=== PATIENT | female | born 1945 | race Asian ===

== ENCOUNTER → 2017-08-31 | Outpatient (REF) | payer MEDICARE, OTHER ==
[2017-08-31 16:21] LABS: CHOLESTEROL LEVEL 292 MG/DL (<200); TRIGLYCERIDES LEVEL 321 MG/DL (<150)
[2017-09-01 11:27] LABS: HEPATITIS B SURFACE ANTIBODY NEGATIVE (POSITIVE)
== END ==
LOC: M LAB REF 15:28
PROVIDERS: ATTEND Internal Medicine Nephrology
DX: N18.6 End stage renal disease (principal); E78.2 Mixed hyperlipidemia

== ENCOUNTER → 2018-02-01 | Outpatient (CLI) | payer MEDICARE, OTHER | LOC: M RAD 09:14 | DX: N18.6 End stage renal disease (principal); F31.9 Bipolar disorder, unspecified; E83.52 Hypercalcemia | CPT/HCPCS: 78070 ==

== ENCOUNTER → 2018-11-10 | Outpatient (CLI) | payer MEDICARE, OTHER ==
[~2018-11-10] MED LIST: ISOVUE-300 61% 50ML VIAL (Q9967) As Ordered ONE; LIDOCAINE 2% MDV 20 ML VIAL As Ordered ONE; MIDAZOLAM INJ 2 MG/2 ML VIAL (J2250) As Ordered ONE; fentaNYL 100 MCG/2 ML INJECTION (J3010) As Ordered ONE
--- NOTE | 2018-11-10 16:49 | ROOPDOC ---
[facility] Report Of Operation Report of Operation DATE OF PROCEDURE: 11/10/18 PREPROCEDURE DIAGNOSES: End-stage renal disease on hemodialysis with poorly functioning left upper extremity AV fistula. POSTPROCEDURE DIAGNOSES: Same. PROCEDURE: 1. Ultrasound-guided access left upper extremity basilic vein 2. Left upper extremity fistulogram and central venogram 3. Angioplasty of the left basilic vein with an 8 x 40 and 10 x 80 [place] balloon 4. Completion venogram SURGEON: Colleen Garsia MD ANESTHESIA: Local anesthesia with 3 mL of lidocaine conscious sedation was supervised by Dr. Garsia, and the patient was monitored throughout the procedure by myself and was also independently monitored by a registered nurse assigned to the Department of radiology using automated blood pressure, EKG and pulse oximetry the detailed conscious record is permanently stored in the hospital information system. The following is the conscious sedation record: Versed 1 mg IV, fentanyl 75 g IV; start time 07:59, and time 08:30. The patient tolerated the sedation well. She was monitored appropriately postprocedure and d ischarged in stable condition. INDICATION FOR PROCEDURE: Ms. Mai is a very pleasant 73-year-old patient with end-stage renal disease, currently dialyzing with the left upper extremity brachial, basilic AV fistula. She has had increased pulsatility in the fistula and increased bleeding with procedures. We note this pulsatility is significant today on exam. Risks, benefits and alternatives to a fistulogram and potential intervention were explained at length to the patient. She is agreeable to proceed. Informed consent was obtained. The patient's was also present for the discussion and is also agreeable for us to proceed. PROCEDURE NOTE: The patient was brought to the angiographic suite in stable condition. Her left upper extremity was prepped and draped in a sterile fashion. A timeout was performed. Ultrasound was used to examine the fistula on the upper arm. The inflow through the AV anastomosis in the proximal aspect of the vein were all widely patent. We utilized ultrasound to access the vein near the AV anastomosis after anesthetizing with local anesthesia. A wire was passed through this access. Under fluoroscopic guidance. The micro-sheath was placed. Through this sheath Glidewire was advanced into the central system under fluoroscopic guidance, and the sheath was exchanged for a 6 [place] sheath. Sheath was flushed with saline. Sedation was administered through the sheath and the patient tolerated this well. We then injected a small amount of contrast through the sheath and several images were obtained. A 70% stenosis was noted in the distal basilic vein and a less significant 30% stenosis was noted just proximal to this in the axillary vein. We first selected an 8 x 40 [place] balloon and angioplasty the area of tight stenosis for three-minute inflations. The patient had significant discomfort and a small additional amount of fentanyl was given. She tolerated this well. We then deflated the balloon and venogram confirmed. There was no extravasation, but still some residual stenosis. We then exchanged her balloon for a 10 x 80 [place] balloon inflated this across the area of tight stenosis as well as mild stenosis more proximally. This was also inflated for a total of 3 minutes. After deflating the balloon, we saw significant improvement inflow through the fistula and less than 10% residual stenosis. There was an excellent thrill and all of the pulsatility had resolved. This concluded her procedure. The suture was placed at the access site sheath was removed. Pressure was held for 2 minutes for good hemostasis and dressings were applied. The patient was then taken to recovery in stable condition. ESTIMATED BLOOD LOSS: Approximately 2 mL. COMPLICATIONS:. None. REMARKS: It is okay to use the fistula for dialysis. COLLEEN GARSIA MD Nov 10, 2018 16:49
== END | disposition home or self-care (01) ==
LOC: M IRPRO 06:12
PROVIDERS: ATTEND Surgery Vascular Surgery
DX: T82.858A Stenosis of other vascular prosthetic devices, implants and grafts, initial encounter (principal); N18.6 End stage renal disease; Z99.2 Dependence on renal dialysis
CPT/HCPCS: 36902; 99152; 99153; C1725; C1769; C1894; J2250; J3010; Q9967

== ENCOUNTER 2021-03-27 12:34 | Emergency (ER) | payer MEDICARE, OTHER ==
[~2021-03-27] VITALS: Ht 165.1 cm; Wt 70.5 kg
[2021-03-27 12:35] VITALS: BP 177/77
--- NOTE | 2021-03-27 13:11 | REPVR ---
PROCEDURE INFORMATION: Exam: CT Head Without Contrast Exam date and time: 03/27/2021 12:47 PM Age: 75 years old Clinical indication: Injury or trauma; Fall; Blunt trauma (contusions or hematomas); Additional info: Fall injury TECHNIQUE: Imaging protocol: Computed tomography of the head without contrast. Radiation optimization: All CT scans at this facility use at least one of these dose optimization techniques: automated exposure control; mA and/or kV adjustment per patient size (includes targeted exams where dose is matched to clinical indication); or iterative reconstruction. COMPARISON: [facility] 02/01/2018 9:47 AM FINDINGS: Brain: There is no acute intracranial abnormality. Moderate small vessel ischemic changes are seen. There is no mass, midline shift, or mass effect. Torres-white matter differentiation is preserved. There is no evidence of hemorrhage. There is no extra-axial fluid collection. Basal cisterns are patent. Cerebral ventricles: Moderate prominence of ventricles and sulci representing volume loss. Paranasal sinuses: Near complete opacification of right maxillary sinus. Mastoid air cells: Visualized mastoid air cells are well aerated. Bones/joints: Unremarkable. No acute fracture. Soft tissues: Unremarkable. IMPRESSION: 1. Moderate volume loss and small vessel ischemic changes. 2. No acute intracranial abnormality. 3. Near complete opacification of right maxillary sinus. Electronically signed by: Clarissa Vaughn On 03/27/2021 13:11:17 PM
--- NOTE | 2021-03-27 13:13 | REPVR ---
PROCEDURE INFORMATION: Exam: CT Cervical Spine Without Contrast Exam date and time: 03/27/2021 12:47 PM Age: 75 years old Clinical indication: Injury or trauma; Fall; Blunt trauma; Additional info: Fall injury TECHNIQUE: Imaging protocol: Computed tomography images of the cervical spine without contrast. Radiation optimization: All CT scans at this facility use at least one of these dose optimization techniques: automated exposure control; mA and/or kV adjustment per patient size (includes targeted exams where dose is matched to clinical indication); or iterative reconstruction. COMPARISON: [facility] PARATHYROID IM[facility]ING 02/01/2018 9:47 AM FINDINGS: Bones/joints: No acute fracture. Normal alignment. Diffuse demineralization of the bones. Mild degenerative changes. Cystic lucency in C5 vertebral body measuring 4.5 mm the of uncertain etiology, clinical correlation is recommended. Discs/Spinal canal/Neural foramina: No significant disc protrusion. No severe spinal canal stenosis. No significant neural foraminal narrowing. Lungs: Lung apices are normal. Soft tissues: Unremarkable. IMPRESSION: No acute findings. Electronically signed by: Clarissa Vaughn On 03/27/2021 13:13:20 PM
--- NOTE | 2021-03-27 13:32 | REP ---
INDICATION: fall injury. COMPARISON: None. TECHNIQUE: Four views of the right wrist are obtained. FINDINGS: Four views of the right wrist demonstrate overall diffuse osteopenia. Joint spaces are preserved. No fracture is evident. There is subcortical cyst formation in the distal aspect of the navicula and minimal spurring is seen at the 1st carpal metacarpal articulation. There is a large bone density or bony overgrowth adjacent to or arising from the distal ulna. There is soft tissue swelling over this. The ulnar cortical margins appear intact no fracture is visualized. This associated bone density measuresr up to 1.5 cm in greatest diameter. This is of uncertain etiology. If this is a fracture I cannot resolve its donor site. Possibility of a osteo chondroma or old posttraumatic deformity is considered. IMPRESSION: There is a 1.5 cm bone density projecting adjacent to or arising from the distal ulna of uncertain significance. There is overlying soft tissue swelling. No definite fracture seen. Consider CT for further evaluation. Diffuse osteopenia. Otherwise negative. <Electronically signed by Dilan Chavis > 03/27/21 [id number]
--- NOTE | 2021-03-27 13:35 | REP ---
INDICATION: fall injury. COMPARISON: None. TECHNIQUE: Four views of the right elbow are provided. FINDINGS: Four views of the right elbow demonstrate medial and lateral epicondylar spurring. Joint spaces are preserved. No fracture is seen. There is Kathy olecranon soft tissue swelling and minimal olecranon process spurring is seen. There are 2 calcific densities in the soft tissues of proximal forearm, 1 medially and 1 laterally. These are of uncertain significance.. No fracture or subluxation is seen. . IMPRESSION: Medial and lateral epicondylar spurring. No fracture or subluxation seen. 2 calcific densities versus foreign bodies in the proximal forearm soft tissues. Question previous vascular access procedure related calcification.. <Electronically signed by Dilan Chavis > 03/27/21 [id number]
--- NOTE | 2021-03-27 13:36 | REP ---
INDICATION: fall injury. COMPARISON: None. TECHNIQUE: Three views of the right shoulder are provided. FINDINGS: The right glenohumeral and acromioclavicular joints are normally aligned. There is diffuse osteopenia. No fracture or subluxation is seen. Visualized right rib cage is intact. IMPRESSION: No fracture seen. No subluxation noted. <Electronically signed by Dilan Chavis > 03/27/21 [id number]
--- NOTE | 2021-03-27 16:03 | REP ---
INDICATION: per radiology, bony projection of ulna. COMPARISON: Comparison is made with today's radiographs. V/Q year bone density projecting over the distal humerus on radiographs.. TECHNIQUE: Helical scanning is acquired through the right forearm. 3 mm axial images re-formatted. Coronal and sagittal MPR images are generated. FINDINGS: There is a 12 by 16 by 5 mm benign osteochondroma arising from the distal ulna along its palm are and ulnar surface. This corresponds to the bone density superimposed on the distal ulna on radiographs. The medullary cavity is contiguous and the lesion is mushroom shaped on axial images. It is felt to be an incidental benign osteochondroma. No ulnar or radial fracture is seen. No carpal or proximal metacarpal fracture is appreciated. No diaphyseal forearm fracture or proximal forearm fracture is seen. There is moderate soft tissue swelling over the dorsal aspect of the distal ulna with a small focal soft tissue hematoma measuring 12 x 8 x 22 mm. IMPRESSION: 1. No evidence of forearm or carpal fracture. 2. 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 3. Soft tissue hematoma the dorsal aspect of the distal forearm adjacent to the distal ulna. <Electronically signed by Dilan Chavis > 03/27/21 [id number]
--- NOTE | 2021-03-28 14:45 | ED PDOC ---
Post-Departure Follow-Up radiology report faxed to Agnieszka Davey MD Mar 28, 2021 14:45
== END 2021-03-27 16:23 | disposition home or self-care (01) ==
LOC: M ED 12:34
DX: S50.11XA Contusion of right forearm, initial encounter (principal); M25.531 Pain in right wrist; W19.XXXA Unspecified fall, initial encounter; Y92.009 Unspecified place in unspecified non-institutional (private) residence as the place of occurrence of the external cause; Y93.9 Activity, unspecified; Y99.9 Unspecified external cause status; D16.01 Benign neoplasm of scapula and long bones of right upper limb; M85.831 Other specified disorders of bone density and structure, right forearm; R93.7 Abnormal findings on diagnostic imaging of other parts of musculoskeletal system; E11.9 Type 2 diabetes mellitus without complications; I10 Essential (primary) hypertension; N18.6 End stage renal disease; Z99.2 Dependence on renal dialysis

== ENCOUNTER 2021-10-06 14:13 | Emergency (ER) | payer MEDICARE, OTHER ==
[~2021-10-06] VITALS: Ht 165.1 cm; Wt 71.8 kg
[2021-10-06] MEDS ORDERED: ARIP1TAB4 (14:29)
[2021-10-06] MEDS ORDERED: PROP60TA14 (14:29)
[2021-10-06] MEDS ORDERED: VELP5CHW (14:29)
[2021-10-06] MEDS ORDERED: ATOR1TAB21 (14:29)
[2021-10-07 01:06] VITALS: BP 154/69
== END 2021-10-07 01:05 | disposition left against medical advice (07) ==
LOC: M ED 14:13
DX: Z53.21 Procedure and treatment not carried out due to patient leaving prior to being seen by health care provider (principal)